=== PATIENT | female | born 1995 | race African-American/Black ===

== ENCOUNTER 2018-11-20 21:55 | Emergency (ER) | payer OTHER ==
[~2018-11-20] VITALS: Ht 160 cm; Wt 51.7 kg
[2018-11-20 22:14] VITALS: Ht 160 cm; Wt 51.7 kg
[2018-11-20 23:04] VITALS: BP 125/85
== END 2018-11-20 23:04 | disposition home or self-care (01) ==
LOC: ED 21:55
DX: S50.811A Abrasion of right forearm, initial encounter (principal); V29.49XA Motorcycle driver injured in collision with other motor vehicles in traffic accident, initial encounter; Y93.I9 Activity, other involving external motion; Y92.413 State road as the place of occurrence of the external cause; Y99.8 Other external cause status